=== PATIENT | male | born 2000 | race Caucasian/White ===

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

== ENCOUNTER → 2022-04-04 | Outpatient (CLI) | payer OTHER ==
[2022-04-04 13:05] LABS: BASO % 0.8 % (0.0-1.0); HEMATOCRIT 45.6 % (42.0-52.0); LYMPH # 1.4 10*3/uL (1.3-4.4); LYMPH % 36.3 % (27.0-41.0); MEAN CELL VOLUME 90.5 fl (80.0-94.0); MEAN CORPUSCULAR HGB 32.1 pg (27.0-31.0); MEAN CORPUSCULAR HGB CONC 35.5 g/dl (33.0-37.0); MEAN PLATELET VOLUME 8.9 fl (9.6-12.3); MONO # 0.4 10*3/uL (0.1-1.0); MONO % 9.6 % (3.0-9.0); NEUT # 2.1 10*3/uL (2.3-7.9); PLATELET COUNT AUTOMATED 180 10*3/uL (130-400); RED BLOOD COUNT 5.04 10*6/uL (4.50-5.90); RED CELL DISTRI WIDTH 11.8 % (0-14.5)
[2022-04-04 13:28] LABS: ALKALINE PHOSPHATASE 133 U/L (46-116); BUN 9 mg/dl (9-23); CHLORIDE 106 mmol/L (98-107); CHOLESTEROL 124 mg/dL (<200); LDL CHOLESTEROL 59 mg/dL (9-159); POTASSIUM 3.9 mmol/L (3.4-5.1); SGPT/ALT 21 U/L (10-49); SODIUM 140 mmol/L (136-145); TRIGLYCERIDES 83 mg/dl (<150)
== END | disposition home or self-care (01) ==
LOC: LAB 12:45
PROVIDERS: ATTEND Pediatrics
DX: E55.9 Vitamin D deficiency, unspecified (principal); D64.9 Anemia, unspecified

== ENCOUNTER → 2022-04-11 | Outpatient (CLI) | payer OTHER ==
[2022-04-11 15:23] LABS: HEMATOCRIT 47.4 % (42.0-52.0); MEAN CELL VOLUME 90.1 fl (80.0-94.0); MEAN CORPUSCULAR HGB 32.3 pg (27.0-31.0); MEAN CORPUSCULAR HGB CONC 35.9 g/dl (33.0-37.0); MEAN PLATELET VOLUME 8.9 fl (9.6-12.3); RED BLOOD COUNT 5.26 10*6/uL (4.50-5.90); RED CELL DISTRI WIDTH 11.6 % (0-14.5); WHITE BLOOD COUNT 4.6 10*3/uL (4.8-10.8)
[2022-04-11 15:40] LABS: ALKALINE PHOSPHATASE 120 U/L (46-116); BUN 8 mg/dl (9-23); CHLORIDE 106 mmol/L (98-107); CPK 265 U/L (34-171); CREATININE 1.08 mg/dL (0.70-1.30); POTASSIUM 4.7 mmol/L (3.4-5.1); SGPT/ALT 22 U/L (10-49); TOTAL PROTEIN 7.8 gm/dL (6.0-8.0)
== END | disposition home or self-care (01) ==
LOC: LAB 15:02
PROVIDERS: ATTEND Pediatrics
DX: D72.819 Decreased white blood cell count, unspecified (principal)

== ENCOUNTER → 2022-04-30 | Outpatient (CLI) | payer OTHER ==
[2022-04-30 15:35] LABS: BASO % 0.5 % (0.0-1.0); HEMATOCRIT 46.9 % (42.0-52.0); LYMPH # 1.6 10*3/uL (1.3-4.4); LYMPH % 35.8 % (27.0-41.0); MEAN CELL VOLUME 92.9 fl (80.0-94.0); MEAN CORPUSCULAR HGB 31.5 pg (27.0-31.0); MEAN CORPUSCULAR HGB CONC 33.9 g/dl (33.0-37.0); MONO # 0.5 10*3/uL (0.1-1.0); NEUT # 2.3 10*3/uL (2.3-7.9); NEUT % 52.5 % (47.0-73.0); PLATELET COUNT AUTOMATED 178 10*3/uL (130-400); RED BLOOD COUNT 5.05 10*6/uL (4.50-5.90); RED CELL DISTRI WIDTH 11.9 % (0-14.5); WHITE BLOOD COUNT 4.4 10*3/uL (4.8-10.8)
== END | disposition home or self-care (01) ==
LOC: LAB 15:13
PROVIDERS: ATTEND Pediatrics
DX: D72.819 Decreased white blood cell count, unspecified (principal)

== ENCOUNTER 2022-12-15 15:16 | Emergency (ER) | payer OTHER ==
[~2022-12-15] VITALS: Ht 172.7 cm; Wt 61.2 kg
== END 2022-12-15 17:09 | disposition left against medical advice (07) ==
LOC: ED 15:16
DX: S05.90XA Unspecified injury of unspecified eye and orbit, initial encounter (principal); Z88.6 Allergy status to analgesic agent; Z88.8 Allergy status to other drugs, medicaments and biological substances; Z53.21 Procedure and treatment not carried out due to patient leaving prior to being seen by health care provider; W54.1XXA Struck by dog, initial encounter; Y93.89 Activity, other specified; Y92.89 Other specified places as the place of occurrence of the external cause; Y99.8 Other external cause status

== ENCOUNTER 2023-02-05 06:54 | Emergency (ER) | payer SELFPAY ==
[~2023-02-05] VITALS: Ht 170.1 cm; Wt 63.5 kg
== END 2023-02-05 08:21 | disposition home or self-care (01) ==
LOC: ED 06:54
DX: H57.12 Ocular pain, left eye (principal); J45.909 Unspecified asthma, uncomplicated; F90.9 Attention-deficit hyperactivity disorder, unspecified type; Z88.6 Allergy status to analgesic agent; Z88.8 Allergy status to other drugs, medicaments and biological substances; Z98.890 Other specified postprocedural states

== ENCOUNTER 2023-04-25 19:55 | Emergency (ER) | payer SELFPAY | END 2023-04-25 21:23 | disposition left against medical advice (07) | LOC: ED 19:55 | DX: R06.02 Shortness of breath (principal); Z88.6 Allergy status to analgesic agent; Z88.8 Allergy status to other drugs, medicaments and biological substances; Z53.21 Procedure and treatment not carried out due to patient leaving prior to being seen by health care provider ==

== ENCOUNTER 2023-05-01 21:01 | Emergency (ER) | payer SELFPAY ==
[~2023-05-01] VITALS: Ht 170.1 cm; Wt 59.0 kg
[2023-05-01 21:32] LABS: BASO % 0.4 % (0.0-1.0); EOS % 0.2 % (1.0-4.0); HEMATOCRIT 43.3 % (42.0-52.0); LYMPH # 1.8 10*3/uL (1.3-4.4); LYMPH % 21.3 % (27.0-41.0); MEAN CELL VOLUME 88.2 fl (80.0-94.0); MEAN CORPUSCULAR HGB CONC 35.1 g/dl (33.0-37.0); MEAN PLATELET VOLUME 9.1 fl (9.6-12.3); MONO # 0.7 10*3/uL (0.1-1.0); MONO % 8.2 % (3.0-9.0); NEUT # 5.9 10*3/uL (2.3-7.9); NEUT % 69.7 % (47.0-73.0); PLATELET COUNT AUTOMATED 221 10*3/uL (130-400); RED BLOOD COUNT 4.91 10*6/uL (4.50-5.90); RED CELL DISTRI WIDTH 11.1 % (0-14.5); WHITE BLOOD COUNT 8.4 10*3/uL (4.8-10.8)
[2023-05-01 21:48] LABS: ALKALINE PHOSPHATASE 128 U/L (46-116); BUN 8 mg/dl (9-23); CHLORIDE 108 mmol/L (98-107); POTASSIUM 3.9 mmol/L (3.4-5.1); SGPT/ALT 15 U/L (5-49); TOTAL PROTEIN 7.5 gm/dL (6.0-8.0)
[2023-05-01] MEDS ORDERED: VISTARIL25 MG PO ×2 (22:34)
== END 2023-05-01 22:47 | disposition home or self-care (01) ==
LOC: ED 21:01
PROVIDERS: Internal Medicine
DX: U07.1 COVID-19 (principal); F41.9 Anxiety disorder, unspecified; J45.909 Unspecified asthma, uncomplicated; F90.9 Attention-deficit hyperactivity disorder, unspecified type; Z88.6 Allergy status to analgesic agent; Z88.8 Allergy status to other drugs, medicaments and biological substances; Z98.890 Other specified postprocedural states; F17.210 Nicotine dependence, cigarettes, uncomplicated

== ENCOUNTER 2023-05-03 14:54 | Emergency (ER) | payer SELFPAY ==
[~2023-05-03] VITALS: Ht 172.7 cm; Wt 60.3 kg
[~2023-05-03 14:54] MED LIST changes: +VISTARIL25 MG PO
[2023-05-03] MEDS ORDERED: AMOX-CLAV 875-1 EACH PO (15:22)
== END 2023-05-03 15:42 | disposition home or self-care (01) ==
LOC: ED 14:54
DX: H66.93 Otitis media, unspecified, bilateral (principal); J45.909 Unspecified asthma, uncomplicated; F90.9 Attention-deficit hyperactivity disorder, unspecified type; Z88.6 Allergy status to analgesic agent; Z88.8 Allergy status to other drugs, medicaments and biological substances; Z98.890 Other specified postprocedural states

== ENCOUNTER 2024-01-03 18:07 | Emergency (ER) | payer SELFPAY ==
[~2024-01-03] VITALS: Ht 172.7 cm; Wt 61.2 kg
[~2024-01-03 18:07] MED LIST changes: +AMOX-CLAV 875-1 EACH PO
[2024-01-03] MEDS ORDERED: AZITHROMYCIN 250 MG TAB PO ONE (18:30)
[2024-01-03] MEDS ORDERED: methylPREDNISolone sod succ 125 MG VIAL IM ONE (18:30)
[2024-01-03] MEDS ORDERED: AVPAK AZITHROM250 M1 PO (19:19)
[2024-01-03] MEDS ORDERED: PREDNISONE50 MG PO (19:19)
== END 2024-01-03 19:27 | disposition home or self-care (01) ==
LOC: ED 18:07
DX: J45.909 Unspecified asthma, uncomplicated (principal); Z20.822 Contact with and (suspected) exposure to COVID-19; F90.9 Attention-deficit hyperactivity disorder, unspecified type; F17.290 Nicotine dependence, other tobacco product, uncomplicated; Z88.8 Allergy status to other drugs, medicaments and biological substances; Z98.890 Other specified postprocedural states

== ENCOUNTER 2024-01-04 14:20 | Emergency (ER) | payer SELFPAY ==
[~2024-01-04] VITALS: Ht 172.7 cm; Wt 61.2 kg
[~2024-01-04 14:20] MED LIST changes: +AVPAK AZITHROM250 M1 PO; +PREDNISONE50 MG PO
[2024-01-04] MEDS ORDERED: Ondansetron Hydrochloride 4 MG/2 ML VIAL IM ONE (15:50)
[2024-01-04] MEDS ORDERED: Ketorolac Tromethamine 15 MG/ML VIAL IM ONE (15:50)
[2024-01-04] MEDS ORDERED: AZITHROMYCIN 250 MG TAB PO ONE (15:50)
[2024-01-04] MEDS ORDERED: diphenhydrAMINE hydrochloride 50 MG/ML VIAL IM ONE (15:50)
== END 2024-01-04 17:23 | disposition home or self-care (01) ==
LOC: ED 14:20
DX: R51.9 Headache, unspecified (principal); R11.0 Nausea; J45.909 Unspecified asthma, uncomplicated; F90.9 Attention-deficit hyperactivity disorder, unspecified type; Z88.6 Allergy status to analgesic agent; Z88.8 Allergy status to other drugs, medicaments and biological substances; Z98.890 Other specified postprocedural states; Z90.49 Acquired absence of other specified parts of digestive tract

== ENCOUNTER 2024-06-14 20:20 | Emergency (ER) | payer SELFPAY ==
[~2024-06-14] VITALS: Ht 172.7 cm; Wt 61.2 kg
[2024-06-14] MEDS ORDERED: NAPROXEN250 MG PO (21:34)
[2024-06-14] MEDS ORDERED: Ketorolac Tromethamine 60 MG/2 ML VIAL IM ONE (21:35)
== END 2024-06-14 21:44 | disposition home or self-care (01) ==
LOC: ED 20:20
DX: S93.402A Sprain of unspecified ligament of left ankle, initial encounter (principal); J45.909 Unspecified asthma, uncomplicated; F90.9 Attention-deficit hyperactivity disorder, unspecified type; Z88.6 Allergy status to analgesic agent; Z88.8 Allergy status to other drugs, medicaments and biological substances; Z98.890 Other specified postprocedural states; Z90.49 Acquired absence of other specified parts of digestive tract; X58.XXXA Exposure to other specified factors, initial encounter; Y93.51 Activity, roller skating (inline) and skateboarding; Y92.009 Unspecified place in unspecified non-institutional (private) residence as the place of occurrence of the external cause; Y99.8 Other external cause status